=== PATIENT | female | born 1980 | race African-American/Black ===

== ENCOUNTER 2016-05-25 09:04 | Emergency (ER) | payer MEDICAID ==
[~2016-05-25] VITALS: Ht 177.8 cm; Wt 91.0 kg
[~2016-05-25 09:04] MED LIST: PROP40TA7 PO
[2016-05-25 09:55] VITALS: BP 154/93
[2016-05-25] MEDS ORDERED: NAPROXEN 375MG TABLET PO ONE (10:30)
== END 2016-05-25 11:07 | disposition home or self-care (01) ==
LOC: ER 10:46
DX: S70.02XA Contusion of left hip, initial encounter (principal); W11.XXXA Fall on and from ladder, initial encounter; Y93.89 Activity, other specified; Y92.69 Other specified industrial and construction area as the place of occurrence of the external cause; Y99.0 Civilian activity done for income or pay; I10 Essential (primary) hypertension
CPT/HCPCS: 99283

== ENCOUNTER 2016-05-30 18:46 | Emergency (ER) | payer MEDICAID ==
[~2016-05-30] VITALS: Ht 177.8 cm; Wt 91.0 kg
[2016-05-30 21:54] VITALS: BP 141/83
== END 2016-05-30 23:33 | disposition home or self-care (01) ==
LOC: ER 19:13
DX: S09.90XA Unspecified injury of head, initial encounter (principal); Z79.899 Other long term (current) drug therapy; G43.909 Migraine, unspecified, not intractable, without status migrainosus; I10 Essential (primary) hypertension; W21.01XA Struck by football, initial encounter; Y93.89 Activity, other specified; Y99.9 Unspecified external cause status; Y92.89 Other specified places as the place of occurrence of the external cause
CPT/HCPCS: 99283

== ENCOUNTER 2016-06-05 14:04 | Emergency (ER) | payer MEDICAID ==
[~2016-06-05] VITALS: Ht 177.8 cm; Wt 100.0 kg
[2016-06-05 17:04] VITALS: BP 143/83
== END 2016-06-05 17:07 | disposition home or self-care (01) ==
LOC: ER 14:39
DX: M25.561 Pain in right knee (principal); I10 Essential (primary) hypertension; G43.909 Migraine, unspecified, not intractable, without status migrainosus; Z79.899 Other long term (current) drug therapy
CPT/HCPCS: 73560; 81025; 99284

== ENCOUNTER 2016-06-13 09:15 | Emergency (ER) | payer MEDICAID ==
[~2016-06-13] VITALS: Ht 177.8 cm; Wt 98.0 kg
[2016-06-13 09:43] VITALS: BP 155/99
== END 2016-06-13 12:36 | disposition home or self-care (01) ==
LOC: ER 09:16
DX: M25.572 Pain in left ankle and joints of left foot (principal); I10 Essential (primary) hypertension; G43.909 Migraine, unspecified, not intractable, without status migrainosus; Z79.899 Other long term (current) drug therapy
CPT/HCPCS: 29515; 73610; 81025; 99284; Z7610

== ENCOUNTER 2016-06-16 09:12 | Emergency (ER) | payer MEDICAID ==
[~2016-06-16] VITALS: Ht 177.8 cm; Wt 91.0 kg
[2016-06-16] MEDS ORDERED: ACETAMINOPHEN 325MG TABLET PO ONE (09:45)
[2016-06-16] MEDS ORDERED: HYDROCODONE/ACETAMINOPHEN 10/325MG TABLET PO ONE (10:00)
[2016-06-16 11:43] VITALS: BP 137/88
== END 2016-06-16 11:57 | disposition home or self-care (01) ==
LOC: ER 09:13
DX: S09.90XA Unspecified injury of head, initial encounter (principal); I10 Essential (primary) hypertension; G43.909 Migraine, unspecified, not intractable, without status migrainosus; Y08.02XA Assault by strike by baseball bat, initial encounter; Y93.89 Activity, other specified; Y92.481 Parking lot as the place of occurrence of the external cause
CPT/HCPCS: 70450; 99284

== ENCOUNTER 2016-06-23 08:11 | Emergency (ER) | payer MEDICAID ==
[~2016-06-23] VITALS: Ht 177.8 cm; Wt 91.0 kg
[2016-06-23 08:19] VITALS: BP 147/103
[2016-06-23] MEDS ORDERED: NAPROXEN 500MG TABLET PO ONE (09:45)
== END 2016-06-23 10:23 | disposition home or self-care (01) ==
LOC: ER 09:42
DX: M79.605 Pain in left leg (principal); M79.604 Pain in right leg; I10 Essential (primary) hypertension; G43.909 Migraine, unspecified, not intractable, without status migrainosus; Z79.899 Other long term (current) drug therapy
CPT/HCPCS: 99283

== ENCOUNTER 2016-06-30 18:31 | Emergency (ER) | payer MEDICAID ==
[~2016-06-30] VITALS: Ht 177.8 cm; Wt 91.0 kg
[2016-06-30 19:14] VITALS: BP 162/99
== END 2016-06-30 20:56 | disposition home or self-care (01) ==
LOC: ER 20:25
DX: M25.571 Pain in right ankle and joints of right foot (principal); M77.31 Calcaneal spur, right foot; I10 Essential (primary) hypertension; G43.909 Migraine, unspecified, not intractable, without status migrainosus
CPT/HCPCS: 99282

== ENCOUNTER 2016-07-06 09:49 | Emergency (ER) | payer MEDICAID ==
[~2016-07-06] VITALS: Ht 177.8 cm; Wt 91.0 kg
[2016-07-06 10:21] VITALS: BP 166/107
== END 2016-07-06 11:57 | disposition home or self-care (01) ==
LOC: ER 11:48
DX: M54.5 Low back pain (principal); I10 Essential (primary) hypertension; R00.0 Tachycardia, unspecified; G43.909 Migraine, unspecified, not intractable, without status migrainosus
CPT/HCPCS: 99283

== ENCOUNTER 2016-07-08 18:09 | Emergency (ER) | payer MEDICAID | END 2016-07-09 02:20 | disposition left against medical advice (07) | LOC: ER 19:13 | DX: M54.9 Dorsalgia, unspecified (principal); R51 Headache; Z53.21 Procedure and treatment not carried out due to patient leaving prior to being seen by health care provider ==

== ENCOUNTER 2016-07-09 09:47 | Emergency (ER) | payer MEDICAID ==
[~2016-07-09] VITALS: Ht 177.8 cm; Wt 97.0 kg
[2016-07-09 11:24] VITALS: BP 145/105
== END 2016-07-09 11:32 | disposition home or self-care (01) ==
LOC: ER 10:26
DX: M54.2 Cervicalgia (principal); I10 Essential (primary) hypertension; G43.909 Migraine, unspecified, not intractable, without status migrainosus; Z79.899 Other long term (current) drug therapy; V89.2XXA Person injured in unspecified motor-vehicle accident, traffic, initial encounter; Y93.89 Activity, other specified; Y92.410 Unspecified street and highway as the place of occurrence of the external cause; Y99.8 Other external cause status
CPT/HCPCS: 99281

== ENCOUNTER 2016-07-21 08:47 | Emergency (ER) | payer MEDICAID ==
[~2016-07-21] VITALS: Ht 177.8 cm; Wt 91.0 kg
[2016-07-21 09:40] VITALS: BP 158/107
== END 2016-07-21 10:53 | disposition home or self-care (01) ==
LOC: ER 08:57
DX: S90.01XA Contusion of right ankle, initial encounter (principal); I10 Essential (primary) hypertension; G43.909 Migraine, unspecified, not intractable, without status migrainosus; Z79.899 Other long term (current) drug therapy; W01.0XXA Fall on same level from slipping, tripping and stumbling without subsequent striking against object, initial encounter; Y93.89 Activity, other specified; Y92.512 Supermarket, store or market as the place of occurrence of the external cause; Y99.8 Other external cause status
CPT/HCPCS: 99283

== ENCOUNTER 2016-07-26 17:02 | Emergency (ER) | payer MEDICAID ==
[~2016-07-26] VITALS: Ht 177.8 cm; Wt 91.0 kg
[2016-07-26 17:29] VITALS: BP 144/96
== END 2016-07-27 00:35 | disposition left against medical advice (07) ==
LOC: ER 07-27 00:30
DX: M25.571 Pain in right ankle and joints of right foot (principal); Z53.21 Procedure and treatment not carried out due to patient leaving prior to being seen by health care provider

== ENCOUNTER 2016-07-27 08:47 | Emergency (ER) | payer MEDICAID ==
[~2016-07-27] VITALS: Ht 177.8 cm; Wt 91.0 kg
[2016-07-27 10:02] VITALS: BP 151/104
[2016-07-27] MEDS ORDERED: ACETAMINOPHEN 325MG TABLET PO ONE (10:15)
== END 2016-07-27 12:19 | disposition home or self-care (01) ==
LOC: ER 10:34
DX: S93.401A Sprain of unspecified ligament of right ankle, initial encounter (principal); I10 Essential (primary) hypertension; M77.31 Calcaneal spur, right foot; X58.XXXA Exposure to other specified factors, initial encounter; Y93.89 Activity, other specified; Y92.89 Other specified places as the place of occurrence of the external cause
CPT/HCPCS: 73610; 81025; 99284

== ENCOUNTER 2016-08-03 09:16 | Emergency (ER) | payer MEDICAID ==
[~2016-08-03] VITALS: Ht 177.8 cm; Wt 91.0 kg
[2016-08-03 10:17] VITALS: BP 150/108
== END 2016-08-03 14:28 | disposition home or self-care (01) ==
LOC: ER 14:10
DX: M54.5 Low back pain (principal); I10 Essential (primary) hypertension; G43.909 Migraine, unspecified, not intractable, without status migrainosus; X50.0XXA Overexertion from strenuous movement or load, initial encounter; Y93.89 Activity, other specified; Y92.89 Other specified places as the place of occurrence of the external cause; Y99.8 Other external cause status
CPT/HCPCS: 99282

== ENCOUNTER 2016-08-11 09:48 | Emergency (ER) | payer MEDICAID ==
[~2016-08-11] VITALS: Ht 177.8 cm; Wt 91.0 kg
[2016-08-11 09:56] VITALS: BP 187/114
[2016-08-11] MEDS ORDERED: HYDROCODONE/ACETAMINOPHEN 5/325MG TABLET PO ONE (10:45)
== END 2016-08-11 12:05 | disposition home or self-care (01) ==
LOC: ER 11:33
DX: S03.2XXA Dislocation of tooth, initial encounter (principal); W50.0XXA Accidental hit or strike by another person, initial encounter; Y93.89 Activity, other specified; Y92.89 Other specified places as the place of occurrence of the external cause; I10 Essential (primary) hypertension
CPT/HCPCS: 99283

== ENCOUNTER 2016-08-19 20:26 | Emergency (ER) | payer MEDICAID ==
[~2016-08-19] VITALS: Ht 177.8 cm; Wt 90.0 kg
[2016-08-19 21:12] VITALS: BP 151/99
== END 2016-08-20 00:40 | disposition left against medical advice (07) ==
LOC: ER 20:26
DX: Z53.21 Procedure and treatment not carried out due to patient leaving prior to being seen by health care provider (principal)

== ENCOUNTER 2016-08-20 18:17 | Emergency (ER) | payer MEDICAID ==
[~2016-08-20] VITALS: Ht 177.8 cm; Wt 91.0 kg
[2016-08-20 18:33] VITALS: BP 141/101
== END 2016-08-20 21:51 | disposition left against medical advice (07) ==
LOC: ER 18:17
DX: M25.569 Pain in unspecified knee (principal); Z53.21 Procedure and treatment not carried out due to patient leaving prior to being seen by health care provider

== ENCOUNTER 2016-09-10 09:06 | Emergency (ER) | payer MEDICAID ==
[~2016-09-10] VITALS: Ht 177.8 cm; Wt 91.0 kg
[2016-09-10 09:34] VITALS: BP 167/9
== END 2016-09-10 11:40 | disposition left against medical advice (07) ==
LOC: ER 10:43
DX: M79.672 Pain in left foot (principal); Z53.21 Procedure and treatment not carried out due to patient leaving prior to being seen by health care provider

== ENCOUNTER 2016-10-02 07:52 | Emergency (ER) | payer MEDICAID ==
[~2016-10-02] VITALS: Ht 177.8 cm; Wt 91.0 kg
[2016-10-02 08:22] VITALS: BP 168/88
== END 2016-10-02 08:30 | disposition home or self-care (01) ==
LOC: ER 08:08
DX: S20.229A Contusion of unspecified back wall of thorax, initial encounter (principal); X58.XXXA Exposure to other specified factors, initial encounter; Y93.89 Activity, other specified; Y92.89 Other specified places as the place of occurrence of the external cause; Y99.8 Other external cause status
CPT/HCPCS: 99282; Z7610

== ENCOUNTER 2017-11-25 16:58 | Emergency (ER) | payer MEDICAID ==
[~2017-11-25] VITALS: Ht 175.3 cm; Wt 82.0 kg
[2017-11-25] MEDS ORDERED: FERR236T3 PO (17:34)
[2017-11-25 19:25] LABS: BASOPHILS % 0.4 % (0.0-2.0); EOSINOPHILS % 1.7 % (0.0-5.0); HEMOGLOBIN. 7.2 g/dL (12.0-16.0); LYMPHOCYTES % 25.6 % (20.0-50.0); MEAN CORPUSCULAR HEMOGLOBIN 19.3 pg (28.0-32.0); MEAN CORPUSCULAR VOLUME 64.2 fL (81.0-99.0); MEAN PLATELET VOLUME 8.4 fl (7.4-10.4); MONOCYTES % 12.3 % (2.0-8.0); PLATELET 377 x1000/uL (130-400); RED BLOOD CELL COUNT 3.74 mill/uL (4.2-5.4); RED CELL DISTRIBUTION WIDTH 20.3 % (11.6-14.6)
[2017-11-25 19:28] LABS: CHLORIDE 105 mEq/L (98-107)
[2017-11-25 19:41] LABS: PLATELET ESTIMATE NORMAL
[2017-11-25 20:48] VITALS: BP 127/77
== END 2017-11-25 20:49 | disposition home or self-care (01) ==
LOC: ER 17:00
DX: D64.9 Anemia, unspecified (principal); I10 Essential (primary) hypertension
CPT/HCPCS: 36415; 80053; 85025; 86850; 86900; 86901; 99284; Z7610